=== PATIENT | female | born 1975 | race Caucasian/White ===

== ENCOUNTER 2021-07-26 14:09 | Emergency (ER) | payer OTHER ==
[~2021-07-26] VITALS: Ht 154.9 cm; Wt 78.2 kg
[2021-07-26] MEDS ORDERED: HYDROCODONE/ACETAMINOPHEN 5-325 MG TABLET PO ONE (14:45)
[2021-07-26 16:09] VITALS: BP 138/93
== END 2021-07-26 16:25 | disposition home or self-care (01) ==
LOC: EMS 14:14
DX: K42.9 Umbilical hernia without obstruction or gangrene (principal); Z98.51 Tubal ligation status
CPT/HCPCS: 74176; 99284; Z7502; Z7610